=== PATIENT | male | born 1980 | race Caucasian/White ===

== ENCOUNTER 2018-08-28 12:16 | Inpatient (IN) | payer MEDICAID, OTHER ==
[~2018-08-28] VITALS: Ht 162.6 cm; Wt 61.7 kg
[~2018-08-28 12:16] MED LIST: VANCOMYCIN 750 MG PREMIX 150 ML IV SCH
[2018-08-28] MEDS ORDERED: ACETAMINOPHEN 325MG TABLET PO ONE (12:30)
[2018-08-28] MEDS ORDERED: ACETAMINOPHEN 325MG TABLET ONE (12:39)
[2018-08-28] MEDS ORDERED: KETOROLAC 30MG/ML VIAL IV STA (13:28)
[2018-08-28] MEDS ORDERED: SODIUM CHLORIDE 0.9% 1000ML BAG (SEPSIS BOLUS) IV ONE (13:30)
[2018-08-28 14:37] LABS: HEMATOCRIT. 45.8 % (42.0-52.0); HEMOGLOBIN. 15.7 g/dL (14.0-18.0); MEAN CORPUSCULAR HEMOGLOBIN 33.4 pg (28.0-32.0); MEAN CORPUSCULAR VOLUME 97.5 fL (80.0-94.0); MEAN PLATELET VOLUME 9.7 fl (7.4-10.4); PLATELET 150 x1000/uL (130-400); RED CELL DISTRIBUTION WIDTH 13.2 % (11.6-14.6)
[2018-08-28 14:38] LABS: CHLORIDE 92 mEq/L (98-107)
[2018-08-28 14:40] LABS: PROTHROMBIN TIME 10.1 sec (9.1-11.1)
[2018-08-28] MEDS ORDERED: CEFEPIME 1,000 MG in DEXTROSE 5% WATER 50 ML IV SCH (15:30)
[2018-08-28] MEDS ORDERED: SODIUM CHLORIDE 0.9% 1,000 ML IV ONE (15:45)
[2018-08-28 16:34] LABS: PLATELET ESTIMATE NORMAL
[2018-08-28] MEDS ORDERED: SODIUM CHLORIDE 0.9% 1,000 ML IV SCH (18:48)
[2018-08-28] MEDS ORDERED: ONDANSETRON HCL 4MG/2ML INJ IV PRN (19:00)
[2018-08-28] MEDS ORDERED: GUAIFENESIN 200MG/10ML SUGAR FREE UDC PO PRN (19:00)
[2018-08-28] MEDS ORDERED: CLONIDINE 0.1MG TABLET PO PRN (19:00)
[2018-08-28] MEDS ORDERED: NITROGLYCERIN 0.4MG TABLET SL SL PRN (19:00)
[2018-08-28] MEDS ORDERED: MAGNESIUM/ALUMINUM HYDROXIDE/SIMETHICONE 30ML UDC PO PRN (19:00)
[2018-08-28 20:00] LABS: VITAMIN B12 SERUM 582 pg/mL (211-911)
[2018-08-28 20:14] LABS: HEPATITIS B SURFACE ANTIGEN NEGATIVE
[2018-08-28 20:35] LABS: CLARITY URINE TURBID (CLEAR); COLOR URINE DARK YELLOW (YELLOW); KETONES URINE NEGATIVE (NEGATIVE); LEUKOCYTE ESTERASE URINE TRACE (NEGATIVE); NITRITE URINE POSITIVE (NEGATIVE); OCCULT BLOOD URINE 2+ (NEGATIVE); PROTEIN URINE 2+ (NEGATIVE)
[2018-08-28 20:43] LABS: HEPATITIS A AB IGM NEGATIVE (NEGATIVE)
[2018-08-28 21:01] LABS: *AMPHETAMINES SCREEN URINE PRESUMTIVE POSITIVE (NEGATIVE); *BARBITURATES SCREEN URINE NEGATIVE (NEGATIVE); *BENZODIAZEPINES SCREEN URINE NEGATIVE (NEGATIVE); *COCAINE SCREEN URINE NEGATIVE (NEGATIVE); METHADONE URINE SCREEN NEGATIVE (NEGATIVE); OPIATES URINE SCREEN NEGATIVE (NEGATIVE); PHENCYCLIDINE URINE SCREEN NEGATIVE (NEGATIVE)
[2018-08-28 21:03] LABS: CANNABINOID URINE SCREEN NEGATIVE (NEGATIVE)
[2018-08-28 21:20] VITALS: BP 108/72
[2018-08-28 22:18] VITALS: BP 108/72
[2018-08-28] MEDS ORDERED: KETOROLAC 15MG/ML VIAL IV PRN (23:13)
[2018-08-28] MEDS ORDERED: ZOLPIDEM TARTRATE 5MG TABLET PO PRN (23:13)
[2018-08-28] MEDS ORDERED: OSELTAMIVIR 75MG CAPSULE PO SCH (23:14)
[2018-08-28] MEDS ORDERED: NA PHOS,M-B/NA PHOS,DI-BA ENEMA 118ML PR PRN (23:15)
[2018-08-28] MEDS: ASCORBIC ACID 500 MG TABLET PO SCH (23:31)
[2018-08-28] MEDS: SODIUM CHLORIDE 0.9% 1,000 ML IV SCH (23:31)
[2018-08-29] VITALS (32 sets, daily range): BP systolic 76–128; BP diastolic 49–79
[2018-08-29] MEDS: LORAZEPAM 0.5MG TABLET PO PRN ×2 (00:05→05:30)
[2018-08-29] MEDS ORDERED: CEFTRIAXONE 1 G PREMIX 50 ML IV NR (01:00)
[2018-08-29] MEDS ORDERED: AZITHROMYCIN 500 MG in DEXT 5% WATER 250 ML IV NR (02:00)
[2018-08-29] MEDS ORDERED: VANCOMYCIN 1250MG in DEXTROSE 5% WATER 250ML IV NR (03:00)
[2018-08-29 04:19] LABS: BG BASE EXCESS -5.7 mmol/L (-2.0-2.0); BG CARBOXYHEMOGLOBIN 0.5 % (0.5-1.5); BG DEOXYHEMOGLOBIN 15.6 % (0.0-5.0); BG FRACTION INSPIRED OXYGEN 32; BG HCO3 ACT 18.1 mmol/L (22.0-26.0); BG METHEMOGLOBIN 0.3 % (0.0-1.5); BG OXYGEN SATURATION 84.3 % (92.0-98.5); BG OXYHEMOGLOBIN 83.6 % (94.0-97.0); BG PCO2 30.9 mmHg (35.0-45.0); BG PH 7.386 (7.350-7.450); BG PO2 50.2 mmHg (75.0-100.0); BG SAMPLE SITE RIGHT RADIAL; BG TOTAL HEMOGLOBIN 13.5 g/dL (12.0-18.0); BG VENT MODE NASAL CANNULA
[2018-08-29 08:56] LABS: BG BASE EXCESS -4.4 mmol/L (-2.0-2.0); BG CARBOXYHEMOGLOBIN 0.5 % (0.5-1.5); BG DEOXYHEMOGLOBIN 8.2 % (0.0-5.0); BG FRACTION INSPIRED OXYGEN 99; BG HCO3 ACT 20.7 mmol/L (22.0-26.0); BG METHEMOGLOBIN 0.4 % (0.0-1.5); BG OXYGEN SATURATION 91.7 % (92.0-98.5); BG OXYHEMOGLOBIN 90.9 % (94.0-97.0); BG PCO2 38.4 mmHg (35.0-45.0); BG PH 7.349 (7.350-7.450); BG PO2 67.5 mmHg (75.0-100.0); BG SAMPLE SITE RIGHT BRACHIAL; BG TOTAL HEMOGLOBIN 15.2 g/dL (12.0-18.0); BG VENT MODE MASK - NRB
[2018-08-29] MEDS ORDERED: LORAZEPAM 2MG/ML CPJ IV PRN (09:30)
[2018-08-29] MEDS ORDERED: VANCOMYCIN 750 MG PREMIX 150 ML IV SCH (10:00)
[2018-08-29 10:59] LABS: BG BASE EXCESS -8.6 mmol/L (-2.0-2.0); BG BILEVEL POS AIRWAY PRESSURE 15/5; BG CARBOXYHEMOGLOBIN 0.1 % (0.5-1.5); BG DEOXYHEMOGLOBIN 3.3 % (0.0-5.0); BG FRACTION INSPIRED OXYGEN 100; BG HCO3 ACT 18.8 mmol/L (22.0-26.0); BG METHEMOGLOBIN 0.4 % (0.0-1.5); BG OXYGEN SATURATION 96.7 % (92.0-98.5); BG OXYHEMOGLOBIN 96.2 % (94.0-97.0); BG PCO2 45.5 mmHg (35.0-45.0); BG PH 7.233 (7.350-7.450); BG PO2 106.5 mmHg (75.0-100.0); BG SAMPLE SITE RIGHT BRACHIAL; BG VENT MODE MASK - BIPAP; BG VENT RATE 16 set
[2018-08-29] MEDS ORDERED: FOLIC ACID 1 MG, THIAMINE HCL 100 MG, MVI, ADULT NO.1 10 ML in DEXT 5%/0.9% NACL 1,000 ML IV ONE ×4 (11:00)
[2018-08-29 13:08] LABS: HEMATOCRIT. 43.2 % (42.0-52.0); HEMOGLOBIN. 14.5 g/dL (14.0-18.0); MEAN CORPUSCULAR HEMOGLOBIN 33.5 pg (28.0-32.0); MEAN CORPUSCULAR VOLUME 99.5 fL (80.0-94.0); MEAN PLATELET VOLUME 10.2 fl (7.4-10.4); PLATELET 62 x1000/uL (130-400); RED BLOOD CELL COUNT 4.34 mill/uL (4.7-6.1); RED CELL DISTRIBUTION WIDTH 13.8 % (11.6-14.6)
[2018-08-29] MEDS ORDERED: DEXTROSE 50% WATER 50ML SYRINGE IV ONE (13:11)
[2018-08-29 13:12] LABS: CHLORIDE 108 mEq/L (98-107)
[2018-08-29 13:15] LABS: BG BASE EXCESS -9.9 mmol/L (-2.0-2.0); BG CARBOXYHEMOGLOBIN 0.2 % (0.5-1.5); BG DEOXYHEMOGLOBIN 5.7 % (0.0-5.0); BG FRACTION INSPIRED OXYGEN 100; BG HCO3 ACT 21.8 mmol/L (22.0-26.0); BG METHEMOGLOBIN 0.6 % (0.0-1.5); BG OXYGEN SATURATION 94.3 % (92.0-98.5); BG OXYHEMOGLOBIN 93.5 % (94.0-97.0); BG PCO2 77.1 mmHg (35.0-45.0); BG PH 7.069 (7.350-7.450); BG PO2 96.5 mmHg (75.0-100.0); BG SAMPLE SITE LEFT RADIAL; BG TIDAL VOLUME(mL) 500 mL; BG TOTAL HEMOGLOBIN 14.3 g/dL (12.0-18.0); BG VENT MODE VENT - A/C; BG VENT RATE 16 set
[2018-08-29 13:43] LABS: HEPATITIS B SURFACE ANTIGEN NEGATIVE
[2018-08-29 13:45] LABS: NUCLEATED RED BLOOD CELLS 1 /100 WBC
[2018-08-29 13:46] LABS: PLATELET ESTIMATE DECREASED
[2018-08-29] MEDS ORDERED: DEXTROSE 50% WATER 50ML SYRINGE IV PRN (14:00)
[2018-08-29 14:13] LABS: HEPATITIS A AB IGM NEGATIVE (NEGATIVE)
[2018-08-29] MEDS: PIPERACILLIN/TAZ 3.375G PREMIX 50 ML IV SCH ×3 (14:14→23:40)
[2018-08-29] MEDS: ASCORBIC ACID 500 MG TABLET PO SCH ×2 (14:15→21:02)
[2018-08-29] MEDS: ZINC SULFATE 220 MG ( 50 ) CAPSULE PO SCH (14:16)
[2018-08-29] MEDS: SODIUM CHLORIDE 0.9% 1,000 ML IV SCH ×2 (14:19→21:02)
[2018-08-29] MEDS: FAMOTIDINE 20MG TABLET PO SCH ×2 (14:34→21:02)
[2018-08-29] MEDS: LACTULOSE 20G/30ML UDC PO SCH ×2 (14:34→21:02)
[2018-08-29] MEDS: MIDAZOLAM HCL 100 MG in DEXT 5% WATER 80 ML IV PRN (14:55)
[2018-08-29] MEDS: FENTANYL CITRATE/PF 500 MCG in SODIUM CHLORIDE 0.9% 40 ML IV PRN (14:56)
[2018-08-29] MEDS ORDERED: VECURONIUM BROMIDE 10 MG/VIAL IV ONE (15:09)
[2018-08-29] MEDS ORDERED: ETOMIDATE 2MG/ML 10ML VIAL IV ONE (15:09)
[2018-08-29] MEDS: IPRATROPIUM/ALBUTEROL 0.5-3(2.5)MG/3ML NEB INH PRN (16:48)
[2018-08-29] MEDS ORDERED: ACETAMINOPHEN 650MG/20.3ML UDC PO PRN (17:15)
[2018-08-29] MEDS ORDERED: SODIUM CHLORIDE 0.9% 1000ML BAG (SEPSIS BOLUS) IV NR (17:15)
[2018-08-29 17:29] LABS: BG BASE EXCESS -6.3 mmol/L (-2.0-2.0); BG DEOXYHEMOGLOBIN 0.8 % (0.0-5.0); BG FRACTION INSPIRED OXYGEN 100; BG HCO3 ACT 21.3 mmol/L (22.0-26.0); BG METHEMOGLOBIN 0.4 % (0.0-1.5); BG OXYGEN SATURATION 99.2 % (92.0-98.5); BG OXYHEMOGLOBIN 98.8 % (94.0-97.0); BG PCO2 50.7 mmHg (35.0-45.0); BG PH 7.241 (7.350-7.450); BG PO2 215.5 mmHg (75.0-100.0); BG SAMPLE SITE RIGHT BRACHIAL; BG TIDAL VOLUME(mL) 500 mL; BG TOTAL HEMOGLOBIN 13.4 g/dL (12.0-18.0); BG VENT MODE VENT - A/C; BG VENT RATE 20 set
[2018-08-29] MEDS: ACETAMINOPHEN 325MG TABLET PO PRN (17:38)
[2018-08-29] MEDS: VANCOMYCIN 750 MG PREMIX 150 ML IV SCH (17:38)
[2018-08-29] MEDS ORDERED: CEFTRIAXONE 1 G PREMIX 50 ML IV SCH (20:00)
[2018-08-29] MEDS ORDERED: AZITHROMYCIN 500 MG in DEXT 5% WATER 250 ML IV SCH (21:00)
[2018-08-29] MEDS: PHENYLEPHRINE 20 MG in DEXT 5% WATER 248 ML IV PRN (23:39)
[2018-08-30] VITALS (88 sets, daily range): BP systolic 78–124; BP diastolic 43–70
[2018-08-30] MEDS: VANCOMYCIN 750 MG PREMIX 150 ML IV SCH ×2 (00:58→09:56)
[2018-08-30] MEDS: PHENYLEPHRINE 20 MG in DEXT 5% WATER 248 ML IV PRN ×3 (03:15→08:37)
[2018-08-30] MEDS: FENTANYL CITRATE/PF 500 MCG in SODIUM CHLORIDE 0.9% 40 ML IV PRN ×4 (04:00→21:41)
[2018-08-30] MEDS: LACTULOSE 20G/30ML UDC PO SCH ×3 (05:21→21:08)
[2018-08-30] MEDS: MIDAZOLAM HCL 100 MG in DEXT 5% WATER 80 ML IV PRN (05:29)
[2018-08-30 06:00] LABS: CHLORIDE 114 mEq/L (98-107)
[2018-08-30] MEDS: SODIUM CHLORIDE 0.9% 1,000 ML IV SCH ×2 (06:10→09:24)
[2018-08-30] MEDS: PIPERACILLIN/TAZ 3.375G PREMIX 50 ML IV SCH (07:19)
[2018-08-30] MEDS: IPRATROPIUM/ALBUTEROL 0.5-3(2.5)MG/3ML NEB INH PRN (08:01)
[2018-08-30 08:46] LABS: HEMATOCRIT. 36.9 % (42.0-52.0); HEMOGLOBIN. 12.4 g/dL (14.0-18.0); MEAN CORPUSCULAR HEMOGLOBIN 33.3 pg (28.0-32.0); MEAN PLATELET VOLUME 10.9 fl (7.4-10.4); RED BLOOD CELL COUNT 3.72 mill/uL (4.7-6.1)
[2018-08-30 09:10] LABS: HIV SCREEN 4G Non Reactive (Non Reactive)
[2018-08-30] MEDS ORDERED: VASOPRESSIN 10 UNIT in SODIUM CHLORIDE 0.9% 99.5 ML IV PRN (09:30)
[2018-08-30] MEDS ORDERED: POTASSIUM CHLORIDE 20MEQ/PACKET PO NR (09:30)
[2018-08-30 09:37] LABS: BG BASE EXCESS -4.9 mmol/L (-2.0-2.0); BG CARBOXYHEMOGLOBIN 0.5 % (0.5-1.5); BG DEOXYHEMOGLOBIN 3.9 % (0.0-5.0); BG FRACTION INSPIRED OXYGEN 70; BG HCO3 ACT 20.9 mmol/L (22.0-26.0); BG METHEMOGLOBIN 0.3 % (0.0-1.5); BG OXYGEN SATURATION 96.1 % (92.0-98.5); BG OXYHEMOGLOBIN 95.3 % (94.0-97.0); BG PCO2 41.6 mmHg (35.0-45.0); BG PH 7.319 (7.350-7.450); BG PO2 82.6 mmHg (75.0-100.0); BG SAMPLE SITE LEFT BRACHIAL; BG TIDAL VOLUME(mL) 500 mL; BG TOTAL HEMOGLOBIN 13.3 g/dL (12.0-18.0); BG VENT MODE VENT - A/C; BG VENT RATE 20 set
[2018-08-30 09:51] LABS: PLATELET 33 x1000/uL (130-400); PLATELET ESTIMATE MARKEDLY DECREASED
[2018-08-30] MEDS: ASCORBIC ACID 500 MG TABLET PO SCH ×2 (09:56→20:41)
[2018-08-30] MEDS: ZINC SULFATE 220 MG ( 50 ) CAPSULE PO SCH (09:56)
[2018-08-30] MEDS: PANTOPRAZOLE SODIUM 40 MG/VIAL IV SCH (09:56)
[2018-08-30] MEDS: FOLIC ACID 1 MG, THIAMINE HCL 100 MG, MVI, ADULT NO.1 10 ML in DEXT 5%/0.9% NACL 1,000 ML IV SCH ×4 (10:37)
[2018-08-30] MEDS: PHENYLEPHRINE 80 MG in DEXT 5% WATER 492 ML IV PRN ×2 (10:41→18:59)
[2018-08-30] MEDS ORDERED: MEROPENEM 1,000 MG in SODIUM CHLORIDE 0.9% 100 ML IV SCH (11:00)
[2018-08-30] MEDS: ACETAMINOPHEN 325MG TABLET PO PRN (12:23)
[2018-08-30] MEDS: BLOOD SUGAR DIAGNOSTIC STRIP TEST SCH ×3 (12:23→23:22)
[2018-08-30] MEDS: METRONIDAZOLE 500 MG PREMIX 100 ML IV SCH ×2 (16:22→23:49)
[2018-08-30] MEDS ORDERED: LEVOFLOXACIN 500MG PREMIX 100 ML IV SCH (17:00)
[2018-08-31] VITALS (95 sets, daily range): BP systolic 88–124; BP diastolic 48–74
[2018-08-31] MEDS: SODIUM CHLORIDE 0.9% 1,000 ML IV SCH ×4 (00:05→22:20)
[2018-08-31] MEDS: IPRATROPIUM/ALBUTEROL 0.5-3(2.5)MG/3ML NEB INH PRN ×4 (00:43→16:31)
[2018-08-31] MEDS: FENTANYL CITRATE/PF 500 MCG in SODIUM CHLORIDE 0.9% 40 ML IV PRN ×4 (04:33→22:18)
[2018-08-31] MEDS: LACTULOSE 20G/30ML UDC PO SCH ×3 (05:19→21:08)
[2018-08-31] MEDS: BLOOD SUGAR DIAGNOSTIC STRIP TEST SCH ×4 (05:24→23:57)
[2018-08-31 05:35] LABS: HEMATOCRIT. 41.6 % (42.0-52.0); HEMOGLOBIN. 13.6 g/dL (14.0-18.0); MEAN CORPUSCULAR HEMOGLOBIN 32.6 pg (28.0-32.0); MEAN CORPUSCULAR VOLUME 99.5 fL (80.0-94.0); RED BLOOD CELL COUNT 4.18 mill/uL (4.7-6.1); RED CELL DISTRIBUTION WIDTH 14.9 % (11.6-14.6)
[2018-08-31 05:37] LABS: CHLORIDE 119 mEq/L (98-107)
[2018-08-31 05:45] LABS: VANCOMYCIN TROUGH 7.9 ug/mL (5.0-10.0)
[2018-08-31 06:54] LABS: PLATELET 15 x1000/uL (130-400)
[2018-08-31 07:18] LABS: PLATELET ESTIMATE MARKEDLY DECREASED
[2018-08-31 07:41] LABS: BG BASE EXCESS -6.7 mmol/L (-2.0-2.0); BG CARBOXYHEMOGLOBIN 0.6 % (0.5-1.5); BG DEOXYHEMOGLOBIN 5.2 % (0.0-5.0); BG FRACTION INSPIRED OXYGEN 100; BG HCO3 ACT 20.2 mmol/L (22.0-26.0); BG METHEMOGLOBIN 0.4 % (0.0-1.5); BG OXYGEN SATURATION 94.7 % (92.0-98.5); BG OXYHEMOGLOBIN 93.8 % (94.0-97.0); BG PCO2 45.7 mmHg (35.0-45.0); BG PH 7.264 (7.350-7.450); BG PO2 76.7 mmHg (75.0-100.0); BG SAMPLE SITE RIGHT BRACHIAL; BG TIDAL VOLUME(mL) 500 mL; BG TOTAL HEMOGLOBIN 15.2 g/dL (12.0-18.0); BG VENT MODE VENT - A/C; BG VENT RATE 20 set
[2018-08-31] MEDS: METRONIDAZOLE 500 MG PREMIX 100 ML IV SCH (08:54)
[2018-08-31] MEDS: ASCORBIC ACID 500 MG TABLET PO SCH ×2 (08:54→21:09)
[2018-08-31] MEDS: PANTOPRAZOLE SODIUM 40 MG/VIAL IV SCH (08:54)
[2018-08-31] MEDS: ZINC SULFATE 220 MG ( 50 ) CAPSULE PO SCH (08:55)
[2018-08-31] MEDS: MIDAZOLAM HCL 100 MG in DEXT 5% WATER 80 ML IV PRN ×2 (08:56→22:43)
[2018-08-31] MEDS: FOLIC ACID 1 MG, THIAMINE HCL 100 MG, MVI, ADULT NO.1 10 ML in DEXT 5%/0.9% NACL 1,000 ML IV SCH ×4 (10:54)
[2018-08-31 12:14] LABS: BG BASE EXCESS -8.9 mmol/L (-2.0-2.0); BG CARBOXYHEMOGLOBIN 0.3 % (0.5-1.5); BG DEOXYHEMOGLOBIN 8.3 % (0.0-5.0); BG FRACTION INSPIRED OXYGEN 90; BG HCO3 ACT 18.4 mmol/L (22.0-26.0); BG METHEMOGLOBIN 0.4 % (0.0-1.5); BG OXYGEN SATURATION 91.6 % (92.0-98.5); BG PCO2 44.8 mmHg (35.0-45.0); BG PH 7.232 (7.350-7.450); BG PO2 67.6 mmHg (75.0-100.0); BG SAMPLE SITE RIGHT BRACHIAL; BG TIDAL VOLUME(mL) 500 mL; BG TOTAL HEMOGLOBIN 13.7 g/dL (12.0-18.0); BG VENT MODE VENT - A/C; BG VENT RATE 22 set
[2018-08-31] MEDS: PHENYLEPHRINE 80 MG in DEXT 5% WATER 492 ML IV PRN ×2 (12:59→16:51)
[2018-08-31 14:20] LABS: ETHYLENE GLYCOL None Detected (None detected)
[2018-08-31] MEDS ORDERED: FUROSEMIDE 40MG/4ML VIAL IVP NR (14:30)
[2018-08-31] MEDS ORDERED: DEXTROSE 50% WATER 50ML SYRINGE IV PRN (17:00)
[2018-08-31] MEDS: INSULIN LISPRO 100 UNITS/ML SUBCUT SCH ×2 (17:26→23:59)
[2018-08-31] MEDS: METRONIDAZOLE 500MG TABLET PO SCH (21:09)
[2018-09-01] VITALS (81 sets, daily range): BP systolic 44–179; BP diastolic 25–134
[2018-09-01] MEDS: IPRATROPIUM/ALBUTEROL 0.5-3(2.5)MG/3ML NEB INH PRN (00:56)
[2018-09-01] MEDS: PHENYLEPHRINE 80 MG in DEXT 5% WATER 492 ML IV PRN ×2 (01:45→15:51)
[2018-09-01] MEDS: FENTANYL CITRATE/PF 500 MCG in SODIUM CHLORIDE 0.9% 40 ML IV PRN ×2 (02:18→08:01)
[2018-09-01 05:33] LABS: HEMATOCRIT. 40.1 % (42.0-52.0); HEMOGLOBIN. 13.2 g/dL (14.0-18.0); MEAN CORPUSCULAR HEMOGLOBIN 32.9 pg (28.0-32.0); MEAN PLATELET VOLUME 8.5 fl (7.4-10.4); RED BLOOD CELL COUNT 4.01 mill/uL (4.7-6.1); RED CELL DISTRIBUTION WIDTH 15.3 % (11.6-14.6)
[2018-09-01 05:42] LABS: CHLORIDE 124 mEq/L (98-107)
[2018-09-01 05:51] LABS: PHOSPHORUS 2.6 mg/dL (2.5-4.9)
[2018-09-01 05:53] LABS: PLATELET 11 x1000/uL (130-400)
[2018-09-01 05:54] LABS: CREATINE KINASE 517 IU/L (39-308)
[2018-09-01] MEDS: INSULIN LISPRO 100 UNITS/ML SUBCUT SCH ×3 (06:00→18:04)
[2018-09-01] MEDS: BLOOD SUGAR DIAGNOSTIC STRIP TEST SCH ×3 (06:15→18:04)
[2018-09-01] MEDS: LACTULOSE 20G/30ML UDC PO SCH ×2 (06:20→16:00)
[2018-09-01 08:31] LABS: BG BASE EXCESS -8.1 mmol/L (-2.0-2.0); BG CARBOXYHEMOGLOBIN 0.1 % (0.5-1.5); BG DEOXYHEMOGLOBIN 7.2 % (0.0-5.0); BG FRACTION INSPIRED OXYGEN 90; BG HCO3 ACT 20.1 mmol/L (22.0-26.0); BG METHEMOGLOBIN 0.2 % (0.0-1.5); BG OXYGEN SATURATION 92.8 % (92.0-98.5); BG OXYHEMOGLOBIN 92.5 % (94.0-97.0); BG PH 7.204 (7.350-7.450); BG PO2 66.5 mmHg (75.0-100.0); BG SAMPLE SITE RIGHT RADIAL; BG TIDAL VOLUME(mL) 500 mL; BG TOTAL HEMOGLOBIN 13.3 g/dL (12.0-18.0); BG VENT MODE VENT - A/C; BG VENT RATE 26 set
[2018-09-01] MEDS: PANTOPRAZOLE SODIUM 40 MG/VIAL IV SCH (08:39)
[2018-09-01] MEDS: METRONIDAZOLE 500MG TABLET PO SCH (08:40)
[2018-09-01] MEDS: ASCORBIC ACID 500 MG TABLET PO SCH (08:40)
[2018-09-01] MEDS: ZINC SULFATE 220 MG ( 50 ) CAPSULE PO SCH (08:40)
[2018-09-01] MEDS ORDERED: CEFTRIAXONE 2 G in DEXTROSE 5% WATER 50 ML IV SCH (09:00)
[2018-09-01] MEDS ORDERED: CEFTRIAXONE 2 G PREMIX 50 ML IV SCH (09:00)
[2018-09-01] MEDS ORDERED: FUROSEMIDE 40MG/4ML VIAL IVP SCH (09:00)
[2018-09-01 09:34] LABS: NUCLEATED RED BLOOD CELLS 1 /100 WBC; PLATELET ESTIMATE MARKEDLY DECREASED
[2018-09-01] MEDS: METOCLOPRAMIDE HCL 10MG/2ML VIAL IV SCH ×2 (12:20→18:25)
[2018-09-01] MEDS: FOLIC ACID 1 MG, THIAMINE HCL 100 MG, MVI, ADULT NO.1 10 ML in DEXT 5%/0.9% NACL 1,000 ML IV SCH ×4 (12:20)
[2018-09-01] MEDS ORDERED: DEXTROSE 50% WATER 50ML SYRINGE IV ONE (13:34)
[2018-09-01] MEDS ORDERED: EPINEPHRINE 0.1MG/ML (1:10,000) 10ML SYR ONE (13:34)
[2018-09-01] MEDS ORDERED: SODIUM BICARBONATE 7.5% 0.9 MEQ/ML 50ML SYR IV ONE (13:34)
[2018-09-01] MEDS ORDERED: AZITHROMYCIN 500 MG TABLET PO SCH (16:30)
[2018-09-01] MEDS ORDERED: NOREPINEPHRINE BITARTRATE 1MG/ML 4ML IV ONE (17:08)
[2018-09-01] MEDS ORDERED: NOREPINEPHRINE 8 MG in DEXT 5% WATER 242 ML IV PRN (18:00)
[2018-09-01] MEDS: ACETAMINOPHEN 325MG TABLET PO PRN (19:26)
[2018-09-01 20:39] LABS: BG CARBOXYHEMOGLOBIN 0.2 % (0.5-1.5); BG DEOXYHEMOGLOBIN 33.4 % (0.0-5.0); BG FRACTION INSPIRED OXYGEN 100; BG HCO3 ACT 13.2 mmol/L (22.0-26.0); BG METHEMOGLOBIN 0.2 % (0.0-1.5); BG OXYGEN SATURATION 66.5 % (92.0-98.5); BG OXYHEMOGLOBIN 66.2 % (94.0-97.0); BG PH 6.862 (7.350-7.450); BG PO2 44.1 mmHg (75.0-100.0); BG SAMPLE SITE RIGHT FEMORAL; BG TIDAL VOLUME(mL) 500 mL; BG TOTAL HEMOGLOBIN 12.5 g/dL (12.0-18.0); BG VENT MODE VENT - A/C; BG VENT RATE 30 set
[2018-09-01] MEDS ORDERED: EPINEPHRINE 1 MG in SODIUM CHLORIDE 0.9% 249 ML IV PRN (21:00)
[2018-09-01] MEDS ORDERED: SODIUM BICARBONATE 100 MEQ in DEXTROSE 5% WATER 1,000 ML IV SCH (21:00)
== END 2018-09-02 00:49 | disposition expired | DRG 720 ==
LOC: ER 12:16 → 8WST 15:42 → EDBEDREQ 15:44 → EDBEDREQSVC 15:44 → ENRESERV 20:10 → 8WST 08-29 01:14 → 5EST 08-29 05:04 → CVICU 08-29 08:28
PROVIDERS: ADMIT Internal Medicine; ATTEND Internal Medicine
PROC: 5A1945Z Respiratory Ventilation, 24-96 Consecutive Hours (ICD-10-PCS; 2018-08-29)
PROC: 0BH17EZ Insertion of Endotracheal Airway into Trachea, Via Natural or Artificial Opening (ICD-10-PCS; 2018-08-29)
PROC: 5A09357 Assistance with Respiratory Ventilation, Less than 24 Consecutive Hours, Continuous Positive Airway Pressure (ICD-10-PCS; 2018-08-29)
PROC: 05HY33Z Insertion of Infusion Device into Upper Vein, Percutaneous Approach (ICD-10-PCS; 2018-08-30)
PROC: B54MZZA Ultrasonography of Right Upper Extremity Veins, Guidance (ICD-10-PCS; 2018-08-30)
PROC: 30233R1 Transfusion of Nonautologous Platelets into Peripheral Vein, Percutaneous Approach (ICD-10-PCS; 2018-08-31)
PROC: 5A12012 Performance of Cardiac Output, Single, Manual (ICD-10-PCS; principal; 2018-09-01)
DX: A41.9 Sepsis, unspecified organism (principal); J96.01 Acute respiratory failure with hypoxia; K72.00 Acute and subacute hepatic failure without coma; R65.21 Severe sepsis with septic shock; E43 Unspecified severe protein-calorie malnutrition; G93.41 Metabolic encephalopathy; J18.9 Pneumonia, unspecified organism; D69.6 Thrombocytopenia, unspecified; E87.70 Fluid overload, unspecified; E87.1 Hypo-osmolality and hyponatremia; E80.6 Other disorders of bilirubin metabolism; F19.10 Other psychoactive substance abuse, uncomplicated; I46.9 Cardiac arrest, cause unspecified; K70.10 Alcoholic hepatitis without ascites; F10.239 Alcohol dependence with withdrawal, unspecified; F17.210 Nicotine dependence, cigarettes, uncomplicated; N39.0 Urinary tract infection, site not specified; Z78.1 Physical restraint status; Z68.23 Body mass index [BMI] 23.0-23.9, adult
CPT/HCPCS: 31500; 36415; 36569; 36600; 71045; 76705; 76937; 80202; 80305; 82140; 82375; 82550; 82553; 82607; 82693; 82746; 82805; 82962; 83036; 83605; 83735; 84100; 84145; 84484; 86705; 86709; 86803; 86850; 86900; 86945; 87070; 87077; 87186; 87340; 87389; 87804; 92950; 93005; 93306; 93970; 94002; 94003; 94640; 94660; 96374; 99291; C1725; C9113; J0456; J0692; J0696; J1815; J1885; J1940; J1956; J2060; J2185; J2250; J2370; J2405; J2543; J2765; J3010; J3370; J3411; J3490; J7030; J7040; J7042; J7050; J7060; J7070; J7620; P9034; A4315